=== PATIENT | female | born 1995 | race Hispanic/Latino ===

== ENCOUNTER 2021-06-23 18:49 | Emergency (ER) | payer OTHER ==
[2021-06-23] MEDS ORDERED: Ondansetron PF 4 MG/2 ML Vial ONE ×2 (19:54→21:29)
[2021-06-23 20:09] LABS: #Eosinphils 0.1 10x3/uL (0.0-0.5); #Monocytes 0.6 10x3/uL (0.0-1.1); #Neutrophils 5.2 10x3/uL (1.5-8.4); %Basophils 0.1 % (0.0-2.0); %Eosinophils 0.7 % (0.0-6.0); %Lymphocytes 21.6 % (18.0-47.0); %Monocytes 7.8 % (0.0-10.0); %Neutrophils 69.5 % (40.0-75.0); Hemoglobin 11.6 g/dL (12.0-15.5); Mean Corpuscular Volume 84.8 fl (81.6-98.3); Mean Platelet Volume 10.2 fl (7.4-10.4); Platelet Count 314 10x3/uL (150-450); RBC Distribution Width 13.3 % (11.5-14.5); Red Blood Cell (RBC) Count 4.15 10x6/uL (3.90-5.03); White Blood Cell (WBC) Count 7.5 10x3/uL (3.5-10.5)
[2021-06-23 20:24] LABS: ALT (SGPT) 12 U/L (8-55); AST (SGOT) 21 U/L (5-34); Albumin 3.8 g/dL (3.5-5.0); Alkaline Phosphatase 44 U/L (40-110); Anion Gap 14 mmol/L (10-20); BUN (Urea Nitrogen) 7 mg/dL (7.0-18.7); Bilirubin, Total 0.7 mg/dL (0.2-1.2); Calc. Creatinine Clearance 0 mL/min (70-130); Calcium 9.1 mg/dL (7.8-10.44); Carbon Dioxide 23 mmol/L (22-29); Chloride 104 mmol/L (98-107); Globulin 3.7 g/dL (2.4-3.5); Glucose 77 mg/dL (70-105); Potassium 3.5 mmol/L (3.5-5.1); Protein, Total 7.5 g/dL (6.0-8.3); Sodium 137 mmol/L (136-145)
== END 2021-06-23 23:44 | disposition home or self-care (01) ==
LOC: CSHERS 18:49
DX: O21.9 Vomiting of pregnancy, unspecified (principal); Z3A.21 21 weeks gestation of pregnancy; O99.012 Anemia complicating pregnancy, second trimester
CPT/HCPCS: 80053; 85025; 96374; 96376; J2405

== ENCOUNTER 2021-10-06 08:59 | Day surgery (SDC) | payer OTHER ==
[2021-10-06] MEDS ORDERED: hydrALAZINE 20 MG/ML VIAL SLOW IVP PRN (09:49)
[2021-10-06] MEDS ORDERED: Ondansetron PF 4 MG/2 ML Vial IVP PRN (09:50)
[2021-10-06] MEDS ORDERED: Acetaminophen 500 MG TAB PO SCH (10:00)
[2021-10-06 10:03] VITALS: BMI 24.7
[2021-10-06 10:37] LABS: #Monocytes 0.5 10x3/uL (0.0-1.1); #Neutrophils 2.6 10x3/uL (1.5-8.4); %Basophils 0.2 % (0.0-2.0); %Eosinophils 0.6 % (0.0-6.0); %Monocytes 9.9 % (0.0-10.0); %Neutrophils 49.9 % (40.0-75.0); Hemoglobin 7.9 g/dL (12.0-15.5); Mean Corpuscular HGB CONC 31.3 g/dL (32.0-36.0); Mean Corpuscular Hemoglobin 23.2 pg (27.0-33.0); Mean Corpuscular Volume 73.9 fl (81.6-98.3); Mean Platelet Volume 11.5 fl (7.4-10.4); Platelet Count 301 10x3/uL (150-450); RBC Distribution Width 15.7 % (11.5-14.5); Red Blood Cell (RBC) Count 3.41 10x6/uL (3.90-5.03); White Blood Cell (WBC) Count 5.2 10x3/uL (3.5-10.5)
[2021-10-06 11:15] LABS: Bilirubin Neg (Negative); Blood, Urine Negative (Negative); Clarity Slightly Cloudy (Clear); Glucose, Urine (Dipstick) Normal (Negative); Ketone, Urine 50 mg/dL (Negative); Leukocyte Negative (Negative); Nitrite Negative (Negative); Protein, Urine (Dipstick) Negative (Neg-Trace); Specific Gravity, Urine 1.015 (1.002-1.036); Urobilinogen Normal mg/dL (Less than 2)
[2021-10-06] MEDS: Lactated Ringer's 1,000 ML IV SCH ×2 (11:15→13:04)
[2021-10-06 11:21] LABS: Urine Culture Reflex No No
[2021-10-06 11:36] LABS: Bacteria/HPF 2+ HPF (None Seen); RBC/HPF 0-3 HPF (0-3); Squamous Epithelial 0-3 HPF (0-3)
[2021-10-06 11:37] LABS: Other Microscopic Description SEE COMMENTS
[2021-10-06 12:05] LABS: SARS-CoV-2 NAA Rapid Test Not Detected (NotDetected)
[2021-10-06 12:10] LABS: ALT (SGPT) Less than 6 U/L (8-55); AST (SGOT) 17 U/L (5-34); Albumin 2.9 g/dL (3.5-5.0); Alkaline Phosphatase 92 U/L (40-110); Anion Gap 11 mmol/L (10-20); BUN (Urea Nitrogen) 4 mg/dL (7.0-18.7); Bilirubin, Total 0.7 mg/dL (0.2-1.2); Calc. Creatinine Clearance 136 mL/min (70-130); Carbon Dioxide 22 mmol/L (22-29); Chloride 106 mmol/L (98-107); Glucose 78 mg/dL (70-105); Protein, Total 5.9 g/dL (6.0-8.3); Sodium 136 mmol/L (136-145)
[2021-10-06] MEDS ORDERED: Iron Sucrose Complex 500 MG in Sodium Chloride 0.9% 250 ML 250 ML IVPB SCH (13:00)
[2021-10-06] MEDS ORDERED: Promethazine HCl 25 MG in Sodium Chloride 0.9% 50 ML IVPB PRN (13:01)
[2021-10-06] MEDS ORDERED: diphenhydrAMINE 50 MG/ML VIAL IVP SCH (13:15)
[2021-10-06] MEDS ORDERED: Promethazine HCl 25 MG, Admixture Fee 1 EACH in Sodium Chloride 0.9% 50 ML IVPB PRN (13:15)
== END 2021-10-06 18:04 | disposition home or self-care (01) ==
LOC: CSHLD/OP 08:59
PROVIDERS: ATTEND Family Medicine
DX: O21.2 Late vomiting of pregnancy (principal); O26.813 Pregnancy related exhaustion and fatigue, third trimester; Z3A.36 36 weeks gestation of pregnancy; Z20.822 Contact with and (suspected) exposure to COVID-19
CPT/HCPCS: 80053; 81001; 82728; 85025; 87077; 87086; 87186; 96361; 96365; 96366; 96374; 96375; 99285; J1200; J1756; J2405; J2550; J7050

== ENCOUNTER 2021-10-13 07:47 | Day surgery (SDC) | payer OTHER ==
[2021-10-13] MEDS ORDERED: Acetaminophen 500 MG TAB PO SCH (08:15)
[2021-10-13] MEDS ORDERED: Iron Sucrose Complex 500 MG in Sodium Chloride 0.9% 250 ML 250 ML IVPB SCH (08:15)
[2021-10-13 08:19] VITALS: BMI 24.6
== END 2021-10-13 13:55 | disposition home or self-care (01) ==
LOC: CSHLD/OP 07:47
PROVIDERS: ATTEND Family Medicine
DX: O99.013 Anemia complicating pregnancy, third trimester (principal); Z3A.37 37 weeks gestation of pregnancy
CPT/HCPCS: 96365; 96366; 99281; J1756; J7050

== ENCOUNTER 2021-10-14 01:09 | Emergency (ER) | payer OTHER ==
[2021-10-14] MEDS ORDERED: Acetaminophen 325 MG TAB ONE (02:13)
== END 2021-10-14 01:55 | disposition home or self-care (01) ==
LOC: CSHERS 01:09
DX: O22.23 Superficial thrombophlebitis in pregnancy, third trimester (principal); T80.1XXA Vascular complications following infusion, transfusion and therapeutic injection, initial encounter; I80.8 Phlebitis and thrombophlebitis of other sites; O99.013 Anemia complicating pregnancy, third trimester; D64.9 Anemia, unspecified; Z3A.37 37 weeks gestation of pregnancy

== ENCOUNTER 2021-10-14 02:15 | Day surgery (SDC) | payer OTHER ==
[2021-10-14 02:36] VITALS: BMI 24.6
[2021-10-14] MEDS ORDERED: hydrALAZINE 20 MG/ML VIAL SLOW IVP PRN (03:12)
[2021-10-14 04:42] LABS: Bilirubin Neg (Negative); Blood, Urine 150 (Negative); Clarity Clear (Clear); Glucose, Urine (Dipstick) Normal (Negative); Ketone, Urine Negative (Negative); Leukocyte 25 (Negative); Nitrite Negative (Negative); Protein, Urine (Dipstick) Negative (Neg-Trace); Specific Gravity, Urine 1.005 (1.002-1.036); Urobilinogen Normal mg/dL (Less than 2)
[2021-10-14 04:51] LABS: Bacteria/HPF 1+ HPF (None Seen); Renal Epithelial 0-3 HPF (None Seen); Squamous Epithelial 0-3 HPF (0-3); Transitional Epithelial 0-3 HPF (None Seen); WBC/HPF 0-3 HPF (0-3)
[2021-10-14 04:53] LABS: Urine Culture Reflex Yes Yes
[2021-10-14] MEDS ORDERED: ceFAZolin 2 GM/Dextrose 50 ML IVPB ONE (05:08)
[2021-10-14] MEDS ORDERED: ceFAZolin 2 GM/Dextrose 50 ML 2 GM in Premix Bag 1 BAG IVPB SCH (05:15)
[2021-10-14] MEDS ORDERED: Lactated Ringer's 1,000 ML IV SCH (05:15)
[2021-10-14] MEDS ORDERED: Acetaminophen 500 MG TAB PO SCH (09:15)
== END 2021-10-14 10:06 | disposition home or self-care (01) ==
LOC: CSHLD/OP 02:15
PROVIDERS: ATTEND Obstetrics & Gynecology
DX: O26.893 Other specified pregnancy related conditions, third trimester (principal); R10.31 Right lower quadrant pain; R10.32 Left lower quadrant pain; O99.013 Anemia complicating pregnancy, third trimester; D50.9 Iron deficiency anemia, unspecified; O99.820 Streptococcus B carrier state complicating pregnancy; O22.23 Superficial thrombophlebitis in pregnancy, third trimester; I80.8 Phlebitis and thrombophlebitis of other sites; Z3A.37 37 weeks gestation of pregnancy; Z87.440 Personal history of urinary (tract) infections; Z87.891 Personal history of nicotine dependence; D64.9 Anemia, unspecified
CPT/HCPCS: 51701; 76819; 81001; 87077; 87086; 87186; 96361; 96365; 99283; 99284; J0690

== ENCOUNTER 2021-10-20 08:00 | Day surgery (SDC) | payer OTHER ==
[2021-10-20 08:23] VITALS: BMI 24.7
[2021-10-20] MEDS ORDERED: Acetaminophen 500 MG TAB PO SCH (08:30)
[2021-10-20] MEDS ORDERED: Iron Sucrose Complex 500 MG in Sodium Chloride 0.9% 250 ML 250 ML IVPB SCH (09:00)
== END 2021-10-20 14:30 | disposition home or self-care (01) ==
LOC: CSHLD/OP 08:00
PROVIDERS: ATTEND Family Medicine
DX: O99.013 Anemia complicating pregnancy, third trimester (principal); Z3A.38 38 weeks gestation of pregnancy
CPT/HCPCS: 96365; 96366; 99281; J1756; J7050

== ENCOUNTER 2021-10-22 10:25 | Inpatient (IN) | payer OTHER ==
[~2021-10-22 10:25] MED LIST: Bupivacaine/Epinephrine 0.25% 30 ML VIAL ONE
[2021-10-22 10:55] VITALS: BMI 23.4
[2021-10-22] MEDS ORDERED: HYDROcodone/Acetaminophen 5/325 mg Tablet PO PRN (11:16)
[2021-10-22] MEDS ORDERED: Misoprostol 200 MCG TAB PR PRN (11:16)
[2021-10-22] MEDS ORDERED: Methylergonovine 0.2 MG/ML VIAL IM PRN (11:16)
[2021-10-22] MEDS ORDERED: Diphenoxylate HCl/Atropine Tablet PO PRN (11:16)
[2021-10-22] MEDS ORDERED: hydrALAZINE 20 MG/ML VIAL SLOW IVP PRN (11:16)
[2021-10-22] MEDS ORDERED: Lidocaine 1% (PF) 30 ML VIAL SC PRN (11:16)
[2021-10-22] MEDS ORDERED: Ibuprofen 800 MG TAB PO PRN (11:16)
[2021-10-22] MEDS ORDERED: Promethazine HCl 25 MG/ML VIAL IM PRN ×2 (11:16→21:11)
[2021-10-22] MEDS ORDERED: Carboprost 250 MCG/ML AMP IM PRN (11:16)
[2021-10-22] MEDS ORDERED: Ondansetron PF 4 MG/2 ML Vial IVP PRN ×2 (11:16→21:11)
[2021-10-22] MEDS ORDERED: Acetaminophen 500 MG TAB PO PRN (11:16)
[2021-10-22] MEDS ORDERED: Butorphanol Tartrate 1 MG/ML VIAL SLOW IVP PRN (11:16)
[2021-10-22] MEDS ORDERED: NS w/ Oxytocin 30 units 500 ML IV SCH ×2 (11:30)
[2021-10-22] MEDS ORDERED: Penicillin G Potassium 5 MILL.UNITS in Sodium Chloride 0.9% 100 ML IVPB SCH (11:30)
[2021-10-22] MEDS: Lactated Ringer's 1,000 ML IV SCH ×2 (11:41→17:22)
[2021-10-22 12:24] LABS: Hemoglobin 9.3 g/dL (12.0-15.5); Mean Corpuscular HGB CONC 31.6 g/dL (32.0-36.0); Mean Corpuscular Hemoglobin 25.1 pg (27.0-33.0); Mean Corpuscular Volume 79.2 fl (81.6-98.3); Mean Platelet Volume 11.1 fl (7.4-10.4); Platelet Count 262 10x3/uL (150-450); RBC Distribution Width 22.9 % (11.5-14.5); Red Blood Cell (RBC) Count 3.71 10x6/uL (3.90-5.03); White Blood Cell (WBC) Count 5.7 10x3/uL (3.5-10.5)
[2021-10-22 13:01] LABS: Hep B Surf Ag Non-Reactive S/CO (NonReactive); Syphilis Antibody Nonreactive (Nonreactive); Syphilis Antibody Index 0.02 S/CO (<1.00 Non-Reactive)
[2021-10-22 13:18] LABS: HBSAg Index 0.18 S/CO (0-0.99)
[2021-10-22 13:42] LABS: SARS-CoV-2 NAA Rapid Test Not Detected (NotDetected)
[2021-10-22] MEDS: Penicillin G 2.5 MILL.units 2.5 MILL.UNITS in Premix Bag 1 BAG IVPB SCH (15:36)
[2021-10-22] MEDS ORDERED: Fentanyl 2 mcg/Bup 0.1% Cadd 100 ML ONE (20:37)
[2021-10-22] MEDS ORDERED: Moisturizing Cream (Eucerin) 113 GM JAR TOP PRN (21:11)
[2021-10-22] MEDS ORDERED: ePHEDrine Sulfate 50 MG/10 ML VIAL SLOW IVP PRN (21:11)
[2021-10-22] MEDS ORDERED: diphenhydrAMINE 50 MG/ML VIAL IVP PRN (21:11)
[2021-10-22] MEDS ORDERED: Lactated Ringer's 500 ML IV PRN (21:11)
[2021-10-22] MEDS ORDERED: Naloxone HCl 0.4 mg/ml Vial IVP PRN ×2 (21:11)
[2021-10-22] MEDS ORDERED: Acetaminophen 325 MG TAB PO PRN (21:11)
[2021-10-22] MEDS ORDERED: Fentanyl 2 mcg/Bupivacaine 0.1% Cassette 100 ML EPIDURAL SCH (21:15)
[2021-10-22] MEDS ORDERED: Communication Order-Pharmacy FS SCH (21:15)
[2021-10-23] MEDS ORDERED: Lanolin Ointment 7 GM TUBE TOP PRN (04:51)
[2021-10-23] MEDS ORDERED: Promethazine HCl 25 MG/ML VIAL IM PRN (04:51)
[2021-10-23] MEDS ORDERED: Bisacodyl 10 MG SUPP PR PRN (04:51)
[2021-10-23] MEDS ORDERED: Ondansetron PF 4 MG/2 ML Vial IVP PRN (04:51)
[2021-10-23] MEDS ORDERED: HYDROcodone/Acetaminophen 5/325 mg Tablet PO PRN (04:51)
[2021-10-23] MEDS ORDERED: hydrALAZINE 20 MG/ML VIAL SLOW IVP PRN (04:51)
[2021-10-23] MEDS ORDERED: Boostrix 0.5 ML (Tdap) VIAL IM ONE (04:51)
[2021-10-23] MEDS ORDERED: Benzocaine-Menthol 82.5 ML CAN TOP PRN (04:51)
[2021-10-23] MEDS ORDERED: Milk Of Magnesia 30 ML UDCUP PO PRN (04:51)
[2021-10-23] MEDS ORDERED: Preparation H Ointment 28 GM TUBE PR PRN (04:51)
[2021-10-23] MEDS ORDERED: diphenhydrAMINE 25 MG CAP PO PRN (04:51)
[2021-10-23] MEDS ORDERED: NS w/ Oxytocin 30 units 500 ML IV SCH (05:00)
[2021-10-23] MEDS: Ibuprofen 800 MG TAB PO SCH ×3 (06:29→21:49)
[2021-10-23] MEDS: Lactated Ringer's 1,000 ML IV SCH (07:09)
[2021-10-23] MEDS: Penicillin G 2.5 MILL.units 2.5 MILL.UNITS in Premix Bag 1 BAG IVPB SCH (07:09)
[2021-10-23] MEDS: Prenatal Vitamin 1 TAB PO SCH (08:34)
[2021-10-23] MEDS: Ferrous Sulfate 325 MG TAB PO SCH ×2 (08:34→16:44)
[2021-10-23] MEDS: Docusate 100 MG CAP PO SCH ×2 (08:34→21:49)
[2021-10-24] MEDS: Ibuprofen 800 MG TAB PO SCH (06:19)
[2021-10-24 07:42] VITALS: BP 114/69; TEMP 98.7
[2021-10-24] MEDS: Ferrous Sulfate 325 MG TAB PO SCH (08:19)
[2021-10-24] MEDS: Docusate 100 MG CAP PO SCH (08:19)
[2021-10-24] MEDS: Prenatal Vitamin 1 TAB PO SCH (08:19)
== END 2021-10-24 15:30 | disposition home or self-care (01) | DRG 807 ==
LOC: CSHLD 10:25 → CSHPP 10-23 02:09
PROVIDERS: ADMIT Family Medicine; ATTEND Family Medicine
PROC: 10E0XZZ Delivery of Products of Conception, External Approach (ICD-10-PCS; principal; 2021-10-22)
PROC: 3E033VJ Introduction of Other Hormone into Peripheral Vein, Percutaneous Approach (ICD-10-PCS; 2021-10-22)
PROC: 10907ZC Drainage of Amniotic Fluid, Therapeutic from Products of Conception, Via Natural or Artificial Opening (ICD-10-PCS; 2021-10-22)
DX: O36.8130 Decreased fetal movements, third trimester, not applicable or unspecified (principal); Z37.0 Single live birth; O99.824 Streptococcus B carrier state complicating childbirth; Z3A.38 38 weeks gestation of pregnancy; O99.02 Anemia complicating childbirth; D64.9 Anemia, unspecified; Z20.822 Contact with and (suspected) exposure to COVID-19
CPT/HCPCS: 36415; 51702; 85027; 86780; 86850; 86900; 86901; 87340; J2405; J2540; J2590; J3490; J7120; U0002